=== PATIENT | female | born 1950 | race Caucasian/White ===

== ENCOUNTER 2023-03-09 19:21 | Emergency (ER) | payer MEDICARE, OTHER | END 2023-03-09 20:39 | disposition home or self-care (01) | LOC: JP.ED 19:21 | DX: S01.81XA Laceration without foreign body of other part of head, initial encounter (principal); W26.8XXA Contact with other sharp object(s), not elsewhere classified, initial encounter | CPT/HCPCS: 12011; 99282 ==